=== PATIENT | female | born 1955 | race Caucasian/White ===

== ENCOUNTER 2021-11-05 07:49 | Outpatient (CLI) | payer MEDICARE | END 2021-11-05 07:50 | disposition home or self-care (01) | LOC: CSHCT 07:49 | PROVIDERS: ATTEND Physician Assistant Surgical | DX: C54.9 Malignant neoplasm of corpus uteri, unspecified (principal); N28.1 Cyst of kidney, acquired; K59.00 Constipation, unspecified; K76.0 Fatty (change of) liver, not elsewhere classified; K62.89 Other specified diseases of anus and rectum; Z98.890 Other specified postprocedural states | CPT/HCPCS: 74177; 82565 ==